=== PATIENT | female | born 1960 | race Caucasian/White ===

== ENCOUNTER → 2021-12-04 | Day surgery (SDC) | payer MEDICARE ==
[~2021-12-04] VITALS: Ht 157.5 cm; Wt 78.2 kg
[~2021-12-04] MED LIST: ACETAMINOPHEN500 M1 PO; ALLERGY RELIEF10 MG PO; BUPRENORPHINE HC8 MG PO; DULOXETINE HCL60 MG PO; FOSAMAX70 MG PO; GARCINIA CAMBO1 EACH PO; MELATONIN5 M2 PO; NASACORT16.9 ML INH; OMEGA 3 FISH O1 EACH PO; OMEPRAZOLE20 M1 PO; TURMERIC500 M1 PO; VITAMIN D350 MC4 PO; WOMEN'S DAILY1 EAC1 PO
== END | disposition home or self-care (01) ==
LOC: FAS 08:59
DX: R19.4 Change in bowel habit (principal); D12.0 Benign neoplasm of cecum; D17.1 Benign lipomatous neoplasm of skin and subcutaneous tissue of trunk; G89.29 Other chronic pain; M54.9 Dorsalgia, unspecified; D17.21 Benign lipomatous neoplasm of skin and subcutaneous tissue of right arm; Z98.51 Tubal ligation status; Z77.22 Contact with and (suspected) exposure to environmental tobacco smoke (acute) (chronic)
CPT/HCPCS: J1885; J2250; J2405; J2704

== ENCOUNTER 2022-05-29 12:24 | Emergency (ER) | payer MEDICARE ==
[~2022-05-29] VITALS: Ht 167.6 cm; Wt 74.8 kg
[2022-05-29 13:58] LABS: BASOPHIL 0.4 % (0-2); EOSINOPHIL 1.1 % (0-5); HCT 44.5 % (37.0-47.0); HGB 14.3 g/dl (12.5-16.0); MCHC 32.1 g/dL (32.0-36.0); MCV 93.3 fL (78.0-100.0); MONOCYTE 6.5 % (0-12); MPV 9.8 fL (6.0-9.5); NEUTROPHIL 59.8 % (41-80); NRBC 0; PLT 470 K/uL (150-400); RBC 4.77 M/uL (4.20-5.40); RDW 13.7 % (11.5-14.0)
[2022-05-29 14:00] LABS: WBC 23.4 K/uL (4.0-10.5)
[2022-05-29 14:18] LABS: ALBUMIN 3.9 g/dL (3.4-5.0); BILIRUBIN - TOTAL 0.4 mg/dL (0.2-1.0); BUN/CREAT RATIO (CALC) 21.4 RATIO; CREATININE 1.12 mg/dL (0.51-0.95); GLOBULIN (CALCULATION) 3.8 g/dL; POTASSIUM 3.6 mmol/L (3.5-5.1); TOTAL PROTEIN 7.7 g/dL (6.4-8.2)
[2022-05-29 14:19] LABS: LACTIC ACID 1.7 mmol/L (0.4-1.9)
[2022-05-29 16:17] LABS: BILIRUBIN NEGATIVE (NEGATIVE); BLOOD NEGATIVE Ery/uL (NEGATIVE); CLARITY CLEAR (CLEAR); COLOR YELLOW (YELLOW); GLUCOSE (U) NORMAL (NORMAL); LEUKOCYTES 1+ Leu/uL (NEGATIVE); NITRITE NEGATIVE (NEGATIVE); PROTEIN NEGATIVE (NEGATIVE); UROBILINOGEN 0.2 mg/dL (0.2-1.0)
[2022-05-29 16:21] LABS: AMPHETAMINES NEGATIVE (NEGATIVE); BARBITURATES NEGATIVE (NEGATIVE); ECSTASY (MDMA) NEGATIVE (NEGATIVE); MARIJUANA (THC) NEGATIVE (NEGATIVE); METHADONE NEGATIVE (NEGATIVE); OPIATES NEGATIVE (NEGATIVE); OXYCODONE NEGATIVE (NEGATIVE)
[2022-05-29 16:25] LABS: BACTERIA 3+
== END 2022-05-29 18:45 | disposition other institution (70) ==
LOC: FER 12:24
PROVIDERS: Emergency Medicine
DX: I47.1 Supraventricular tachycardia (principal); I21.4 Non-ST elevation (NSTEMI) myocardial infarction; F17.200 Nicotine dependence, unspecified, uncomplicated
CPT/HCPCS: 36415; 71045; 80053; 80305; 81001; 83605; 83735; 83880; 84145; 84443; 84484; 85025; 85730; 87076; 87088; 87186; 93005; J0153; J1644; J7030